=== PATIENT | female | born 1950 | race Caucasian/White ===

== ENCOUNTER 2019-04-14 11:21 | Inpatient (IN) | payer OTHER ==
[2019-04-14 11:30] VITALS: BMI 30.1
--- NOTE | 2019-04-14 11:53 | PDOC ---
Attending Attestation - Resident Resident Name: Criss Motley - ED Attending Attestation I have performed the following: I have examined & evaluated the patient, The case was reviewed & discussed with the resident, I agree w/resident's findings & plan, Exceptions are as noted - HPI HPI: 04/14/19 15:31 Reviewed Residents HPI - Physicial Exam PE: 04/14/19 15:31 Vitals: Triage Vital signs reviewed General Appearance: no acute distress, well nourished well developed, Head: Atraumatic, Eyes: Pupils equal reactive round, extraocular movement intact Ears: TM's normal bilaterally; Cardiac: Regular rate and rhythym, no murmurs, no rubs, no gallops, Lungs: Clear to auscultation bilateral, good air movement bilaterally, Abdomen: Soft, non distended, normal bowel sounds, non tender to palpation Extremities: Full range of motion to all extremities, no cyanosis, clubbing, or edema Skin: Warm and dry, no rashes or lesions, no rash, no petechiae Neuro: AOX3; Cranial Nerves 2-12 grossly intact, Strength intact to all extremities, Sensation intact to all extremities,gait normal Psych: normal mood, normal affect - Medical Decision Making 04/14/19 15:31 68 years old with past medical history significant for hypertension intermittent palpitations has been on a Holter monitor presents to the ED with episode of palpitations with right arm numbness which is new. Patient discussed with her primary care doctor and was sent to the emergency department for admission for stroke workup with consultation by Dr. Delgado off neurology Sinus rhythm on EKG. Labs within normal limits We'll admit the hospital for further management.
--- NOTE | 2019-04-14 12:08 | PDOC ---
History of Present Illness - General Chief Complaint: Palpitations Stated Complaint: SENT BY PCP Time Seen by Provider: 04/14/19 11:44 - History of Present Illness Initial Comments: Madina Carter is a 68yo woman with a PMH of HTN who presents with intermittent palpitations at home. She reports that she has had palpitations in the past, and she was given a holter monitor for the past 2 weeks for monitoring. She went to see Dr Matta today to turn in the holter and reported having palpitations overnight along with right arm numbness, which is new. She was sent to the ED for admission for TIA/CVA workup and neurology consultation. Ms Carter states that overnight she had 2 episodes of palpitations, which she describes as feeling her heart beating very strongly, lasting about 15 minutes each overnight. She additionally had the onset of right arm numbness The palpitations resolved, but she continues to have arm numbness. She states that she still has sensation in the RUE but it feels different than normal. She has no other complaints currently. She has never had anything similar happen in the past. Past History - Past Medical History Allergies/Adverse Reactions: Allergies Allergy/AdvReac Type Severity Reaction Status Date / Time No Known Allergies Allergy Verified 04/14/19 11:30 Home Medications: Ambulatory Orders Amlodipine Besylate/Benazepril [Lotrel 10-20 mg Capsule] 1 cap PO DAILY Calcium Phosphate Trib/Vit D3 [Caltrate Gummy Bites] 1 each PO DAILY 04/14/19 Cyclosporine [Restasis] 1 each OP DAILY 04/14/19 Folic Acid - 1 mg PO DAILY 04/14/19 Hydroxychloroquine Sulfate 200 mg PO DAILY 04/14/19 Meloxicam 7.5 mg PO DAILY 04/14/19 Methotrexate Sodium [Methotrexate] 2.5 mg PO BID 04/14/19 Omega3/Dha/Epa/Fish Oil/Vit D3 [Fish Oil-Vit D3 Softgel] 1 each PO DAILY Rosuvastatin [Crestor -] 5 mg PO DAILY 04/14/19 COPD: No HTN: Yes Other medical history: ARTHRITIS - Suicide/Smoking/Psychosocial Hx Smoking History: Never smoked Hx Alcohol Use: No Drug/Substance Use Hx: No Review of Systems - Review of Systems Comments:: General: No fevers, no chills, no weight or appetite change, no malaise HEENT: No changes in vision, no changes in hearing, no congestion, no sore throat CV: No chest pain, no palpitations, no LE edema Pulm: No SOB, no cough, no wheezing GI: No nausea or vomiting, no change in bowel habits, no melena : No frequency, no urgency, no dysuria Musc: No back pain, no joint swelling, no recent injury Skin: No rash, no lesions, no erythema Endo: No excessive thirst, no heat/cold intolerance Heme: No unusual bruising or bleeding, no swollen glands Neuro: No syncope, See HPI, no focal weakness Vasc: No claudication Psych: No recent change in mood, no SI or HI *Physical Exam - Vital Signs Last Vital Signs Temp Pulse Resp BP Pulse Ox 98.1 F 89 16 150/62 99 04/14/19 11:26 04/14/19 11:26 04/14/19 11:04/14/19 11:04/14/19 11:26 - Physical Exam Comments: General: Comfortable, no acute distress HEENT: PERRL, EOMI, MMM, voice normal, normal neck ROM Cards: RRR, no murmur appreciated Pulm: Comfortable on room air, clear to auscultation bilaterally Abd: Soft, nontender, nondistended Ext: Atraumatic. No LE edema. ROM intact. WWP Skin: Normal color, no rashes or lesions Neuro: A&Ox3, CN grossly intact, normal speech, motor grossly intact and symmetric. Light touch feels "different" in RUE compared to left. Psych: Mood appropriate to situation ED Treatment Course - LABORATORY CBC & Chemistry Diagram: 04/14/19 12:06 04/14/19 12:06 - RADIOLOGY Radiology Studies Ordered: Category Date Time Status HEAD CT WITHOUT CONTRAST [CT] Stat CT Scan 04/14/19 12:06 Ordered Medical Decision Making - Medical Decision Making 04/14/19 12:07 Madina Carter is a 68yo woman with a PMH of HTN who was sent to the ED by Dr Matta for intermittent palpitations at home and now RUE numbness that started overnight. She reports some sensation in the RUE but says it feels different than the left. - Possible TIA, may have underlying arrhythmia. Holter monitor for past 2 weeks but unable to access from the ED - CBC, CMP, EKG, CXR - CT head to evaluate for bleed as cause of RUE numbness - Admit when results available. 04/14/19 13:23 - Labs unremarkable - EKG w/ NSR, normal intervals, no ST changes - CT head completed, no acute pathology appreciated on ED read, radiology report pending - Page sent for admission 04/14/19 13:53 - Updated pt and family regarding plan 04/14/19 14:19 - Spoke to MARKO Ponce, will admit to Dr Matta's service on telemetry Discussed with Dr Tang Motley PGY2 *DC/Admit/Observation/Transfer Diagnosis at time of Disposition: Palpitations, RUE numbness - Discharge Dispostion Decision to Admit order: Yes - Referrals - Patient Instructions - Post Discharge Activity
[2019-04-14 12:20] LABS: BASO % 0.3 % (0-2.0); EOS % 0.4 % (0-4.5); HEMATOCRIT 41.5 % (32.4-45.2); HEMOGLOBIN 13.9 GM/dL (10.7-15.3); LYMPH % 31.1 % (8-40); MCH 31.3 pg (25.7-33.7); MCHC 33.6 g/dl (32.0-36.0); MEAN CELL VOLUME 93.2 fl (80-96); MEAN PLT VOLUME 9.4 fl (7.5-11.1); NEUT % 61.2 % (42.8-82.8); PLATELET COUNT 160 K/MM3 (134-434); RBC 4.45 M/mm3 (3.60-5.2); RDW 13.9 % (11.6-15.6); WHITE BLOOD COUNT 6.6 K/mm3 (4.0-10.0)
[2019-04-14 12:46] LABS: ALBUMIN 4.1 g/dl (3.4-5.0); ALK PHOS 92 U/L (45-117); ANION GAP 8 MMOL/L (8-16); BILIRUBIN,TOTAL 0.5 mg/dL (0.2-1); BLOOD UREA NITROGEN 23.5 mg/dL (7-18); CALCIUM 9.3 mg/dL (8.5-10.1); CHLORIDE 109 mmol/L (98-107); CO2 23 mmol/L (21-32); CREATININE 1.1 mg/dL (0.55-1.3); GLUCOSE,RANDOM 108 mg/dL (74-106); POTASSIUM 4.1 mmol/L (3.5-5.1); SGOT/AST 16 U/L (15-37); SGPT/ALT 27 U/L (13-61); SODIUM 141 mmol/L (136-145); TOT PROT 7.4 g/dl (6.4-8.2)
--- NOTE | 2019-04-14 17:40 | HP ---
Admitting History and Physical - Primary Care Physician PCP: Ankit Mtata - Admission Chief Complaint: Palpitations, RUE numbness History of Present Illness: Patient is a 68 y/o female with past medical history of HTN. Patient presented to ER from PCP office for palpitations. Patient states she began experiencing palpitations a few weeks ago not accompanied with SOB, chest pain, or dizziness. She initially was seen by PCP when palpitations started and Holter monitor was for 14 days. She was still experiencing palpitations while monitor was placed. She would also notice that with her palpitations would also experience intermiitent episodes of right upper extremity numbness. She went to see her PCP today to have Holter monitor removed and sent her to ER for further evaluation of her palpitations and RUE numbness. History Source: Patient Limitations to Obtaining History: No Limitations - Smoking History Smoking history: Never smoked - Alcohol/Substance Use Hx Alcohol Use: No Home Medications - Allergies Allergies/Adverse Reactions: Allergies Allergy/AdvReac Type Severity Reaction Status Date / Time No Known Allergies Allergy Verified 04/14/19 11:30 - Home Medications Home Medications: Ambulatory Orders Amlodipine Besylate/Benazepril [Lotrel 10-20 mg Capsule] 1 cap PO DAILY Calcium Phosphate Trib/Vit D3 [Caltrate Gummy Bites] 1 each PO DAILY 04/14/19 Cyclosporine [Restasis] 1 each OP DAILY 04/14/19 Folic Acid - 1 mg PO DAILY 04/14/19 Hydroxychloroquine Sulfate 200 mg PO DAILY 04/14/19 Meloxicam 7.5 mg PO DAILY 04/14/19 Methotrexate Sodium [Methotrexate] 2.5 mg PO BID 04/14/19 Omega3/Dha/Epa/Fish Oil/Vit D3 [Fish Oil-Vit D3 Softgel] 1 each PO DAILY Rosuvastatin [Crestor -] 5 mg PO DAILY 04/14/19 Review of Systems - Review of Systems Constitutional: reports: No Symptoms Eyes: reports: No Symptoms HENT: reports: Difficult Swallowing Neck: reports: No Symptoms Cardiovascular: reports: Palpitations Respiratory: reports: No Symptoms Gastrointestinal: reports: Indigestion Genitourinary: reports: No Symptoms Breasts: reports: No Symptoms Reported Musculoskeletal: reports: No Symptoms Integumentary: reports: No Symptoms Neurological: reports: Numbness (RUE) Endocrine: reports: No Symptoms Hematology/Lymphatic: reports: No Symptoms Psychiatric: reports: No Symptoms Physical Examination Vital Signs: Vital Signs Temperature 98.3 F 04/14/19 16:04 Pulse Rate 78 04/14/19 16:04 Respiratory Rate 16 04/14/19 16:04 Blood Pressure 139/70 04/14/19 16:04 O2 Sat by Pulse Oximetry (%) 100 04/14/19 16:04 Constitutional: Yes: No Distress, Calm Eyes: Yes: Conjunctiva Clear HENT: Yes: Atraumatic Neck: Yes: Supple Cardiovascular: Yes: Regular Rate and Rhythm Respiratory: Yes: Regular, CTA Bilaterally Gastrointestinal: Yes: Normal Bowel Sounds, Soft Musculoskeletal: Yes: WNL Extremities: Yes: WNL Edema: No Neurological: Yes: Alert, Oriented, Weakness (RUE) Psychiatric: Yes: Alert, Oriented Labs: CBC, BMP 04/14/19 12:06 04/14/19 12:06 Imaging - Results Cat Scan: Report Reviewed MRI: Report Reviewed Problem List - Problems (1) Palpitations Assessment/Plan: -Cardiology consult -tele monitoring Code(s): R00.2 - PALPITATIONS (2) RUE numbness Assessment/Plan: -Neurology consult -Head CT scan shows no acute intracranial hemorrhage, edema, midline shift, mass effect, or skull fracture, acute territorial infarction -Brain MRI shows no evidence of ICH, acute infarction, mass lesion -neuro checks q4h Code(s): R20.0 - ANESTHESIA OF SKIN (3) HTN (hypertension) Assessment/Plan: -Lisinopril, Norvasc -low Na diet Code(s): I10 - ESSENTIAL (PRIMARY) HYPERTENSION (4) HLD (hyperlipidemia) Assessment/Plan: -Crestor -lipid panel Code(s): E78.5 - HYPERLIPIDEMIA, UNSPECIFIED Assessment/Plan see problem list dvt ppx
[2019-04-14] MEDS ORDERED: ROSUVASTATIN CA 5 MG TABLET (FP) PO SCH (22:00)
[2019-04-14] MEDS: HEPARIN NA (PORCINE) 5,000 UNITS/ML 1ML VIAL SQ SCH (22:09)
[2019-04-15 06:24] LABS: BASO % 0.6 % (0-2.0); EOS % 1.9 % (0-4.5); HEMATOCRIT 38.6 % (32.4-45.2); LYMPH % 48.1 % (8-40); MCH 31.5 pg (25.7-33.7); MCHC 33.8 g/dl (32.0-36.0); MEAN CELL VOLUME 93.2 fl (80-96); MEAN PLT VOLUME 9.4 fl (7.5-11.1); MONO % 9.4 % (3.8-10.2); PLATELET COUNT 144 K/MM3 (134-434); RBC 4.14 M/mm3 (3.60-5.2); RDW 14.2 % (11.6-15.6); WHITE BLOOD COUNT 5.2 K/mm3 (4.0-10.0)
[2019-04-15 07:40] LABS: ALBUMIN 3.7 g/dl (3.4-5.0); ALK PHOS 80 U/L (45-117); ANION GAP 7 MMOL/L (8-16); BILIRUBIN,TOTAL 0.6 mg/dL (0.2-1); BLOOD UREA NITROGEN 18.5 mg/dL (7-18); CHLORIDE 110 mmol/L (98-107); CHOLESTEROL 120 mg/dL (50-200); CO2 25 mmol/L (21-32); GLUCOSE,RANDOM 94 mg/dL (74-106); HDL CHOLESTEROL 52 mg/dL (40-60); MAGNESIUM 2.1 mg/dL (1.8-2.4); PHOSPHOROUS 3.2 mg/dL (2.5-4.9); POTASSIUM 3.9 mmol/L (3.5-5.1); SGOT/AST 16 U/L (15-37); SGPT/ALT 25 U/L (13-61); SODIUM 142 mmol/L (136-145); TOT PROT 6.6 g/dl (6.4-8.2); TRIGLYCERIDES 76 mg/dL (0-150)
--- NOTE | 2019-04-15 08:54 | PN ---
Progress Note, Physician - Current Medication List Current Medications: Active Medications Amlodipine Besylate (Norvasc -) 10 mg PO DAILY [facility] Heparin Sodium (Porcine) (Heparin -) 5,000 unit SQ BID [facility] Last Admin: 04/14/19 22:09 Dose: 5,000 unit Hydroxychloroquine Sulfate (Plaquenil -) 200 mg PO DAILY [facility] Lisinopril (Prinivil) 20 mg PO DAILY [facility] Rosuvastatin Calcium (Crestor -) 5 mg PO HS [facility] Last Admin: 04/14/19 22:09 Dose: 5 mg - Objective Vital Signs: Vital Signs Temperature 98.3 F 04/15/19 06:00 Pulse Rate 73 04/15/19 06:00 Respiratory Rate 17 04/15/19 06:00 Blood Pressure 123/56 L 04/15/19 06:00 O2 Sat by Pulse Oximetry (%) 99 04/14/19 21:00 Cardiovascular: Yes: Regular Rate and Rhythm Respiratory: Yes: Regular, CTA Bilaterally Gastrointestinal: Yes: Normal Bowel Sounds, Soft Labs: CBC, BMP 04/15/19 06:10 04/15/19 06:05 Assessment/Plan - Problems (1) Palpitations Assessment/Plan: -Cardiology consult -tele monitoring no arrythmia noted -obtain results of zio-patch Code(s): R00.2 - PALPITATIONS (2) RUE numbness Assessment/Plan: -Neurology consult -Head CT scan shows no acute intracranial hemorrhage, edema, midline shift, mass effect, or skull fracture, acute territorial infarction -Brain MRI shows no evidence of ICH, acute infarction, mass lesion -neuro checks q4h Code(s): R20.0 - ANESTHESIA OF SKIN (3) HTN (hypertension) Assessment/Plan: -Lisinopril, Norvasc -low Na diet Code(s): I10 - ESSENTIAL (PRIMARY) HYPERTENSION (4) HLD (hyperlipidemia) Assessment/Plan: -Crestor -lipid panel Code(s): E78.5 - HYPERLIPIDEMIA, UNSPECIFIED
[2019-04-15] MEDS ORDERED: PT OWN MED DRAWER 7, Y5N ONE (09:55)
[2019-04-15] MEDS ORDERED: LISINOPRIL 20 MG TABLET (FP) PO SCH (10:00)
[2019-04-15] MEDS ORDERED: HYDROXYCHLOROQUINE SO4 200 MG TABLET (FP) PO SCH (10:00)
[2019-04-15] MEDS ORDERED: PATIENT'S OWN MEDICATION (NON-FORMULARY) (Amlodipine Besylate/Benazepril [Lotrel 10-20 Mg PO SCH (10:00)
[2019-04-15] MEDS ORDERED: amLODIPine BESYLATE 10 MG TABLET (FP) PO SCH (10:00)
[2019-04-15] MEDS: HEPARIN NA (PORCINE) 5,000 UNITS/ML 1ML VIAL SQ SCH (10:18)
--- NOTE | 2019-04-15 10:55 | CONSULT ---
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 at bedside. PMHX: HTN, HLD, RA, "neck arthritis." On: amlodipine, folic acid, hydroxychloroquine, meloxicam 7.5 mg qd, methotrexate, omega 3, rosuvastatin. Admitted after 2 weeks of new onset, mostly nocturnal, intermittent "palpitations" with R arm "numbness," "tingling" in the fingertips. No SOB. There were two "severe" episodes that occurred at approximately 8 pm while resting and "milder" episodes in evening hours with transient paresthesia in both hands. Was started on Holter monitor by PCP, however palpitations and parasthesia persisted and was told to go to ER. Today without palpitations or paresthesia and none noted last night. Review of systems sig for mild headaches at vertex most of her life, approximately once a week and relieved with Advil. Also with intermittent neck "pains" requiring her to lie down and rest. She does admit she has been somewhat "stressed" and "anxious" dealing with the grandchildren's schedules. Also describes being more agitated lately. Head CT (reviewed): Normal Study. MRI of brain C- (reviewed): Limited study but no obvious acute pathology. WBC= 5.6 TSH= 0.96 RADHA: BP 150/62-> 123/56. P 70s. Cor reg. No bruit. Neck supple. Neg SLR. Neg Tinel's. NEURO: Awake, alert, responsive. [facility]. April 15, 2019. "A bad day." TRUMP. Poor reversals. 2/3 recall @ 5 min. + glabella CNII-CNXII: EOM's full with full bass. No facial. Gag ok. Motor: No drift or tremor. Strength normal. Reflexes normal. Toes downgoing. Coordination: No FTN dystaxia. Sensation: Normal to vibration and pinprick. Gait: Stiff-legged but normal. Can walk on heels, toes without difficulty. Impression: Normal neurological examination Migraine Headaches Cervical spondylosis Possible anxiety/panic attacks with underlying depression. R/O Carpal tunnel syndromes R/O arrhythmia Suggest: Check B12, ESR, CRP Await cardiology evaluation Check orthostatic BP's Neuro f/u as out patient for EMG/NCS and management of chronic headaches and possible RLS. Thank you very much, Suresh Carreon MD
--- NOTE | 2019-04-15 11:09 | EKG ---
Test Reason : Blood Pressure : / mmHG Vent. Rate : 078 BPM Atrial Rate : 078 BPM P-R Int : 154 ms QRS Dur : 078 ms QT Int : 394 ms P-R-T Axes : 055 024 036 degrees QTc Int : 449 ms POOR DATA QUALITY, INTERPRETATION MAY BE ADVERSELY AFFECTED NORMAL SINUS RHYTHM NORMAL ECG NO PREVIOUS ECGS AVAILABLE Confirmed by DIMPLE ELIAS MD ([id number]) on 04/15/2019 11:09:29 AM Referred By: Confirmed By:DIMPLE ELIAS MD
--- NOTE | 2019-04-15 11:49 | CON.CARD ---
Consult Consult Specialty:: Cardiology Referred by:: Sigrid Reason for Consultation:: palpitations - History of Present Illness Chief Complaint: palpitations History of Present Illness: She is a 68 year old woman history of HTN, who has been having 2 weeks of episodic nonexertional palpitations, described as racing, without dizziness, chest pain or syncope, at least one while wearing a holter from Dr Matta's office. Believes she had echo there as well. - Past Medical History ...: No - Alcohol/Substance Use Hx Alcohol Use: No - Smoking History Smoking history: Never smoked Have you smoked in the past 12 months: No Home Medications - Allergies Allergies/Adverse Reactions: Allergies Allergy/AdvReac Type Severity Reaction Status Date / Time No Known Allergies Allergy Verified 04/14/19 11:30 - Home Medications Home Medications: Ambulatory Orders Amlodipine Besylate/Benazepril [Lotrel 10-20 mg Capsule] 1 cap PO DAILY Calcium Phosphate Trib/Vit D3 [Caltrate Gummy Bites] 1 each PO DAILY 04/14/19 Cyclosporine [Restasis] 1 each OP DAILY 04/14/19 Folic Acid - 1 mg PO DAILY 04/14/19 Hydroxychloroquine Sulfate 200 mg PO DAILY 04/14/19 Meloxicam 7.5 mg PO DAILY 04/14/19 Methotrexate Sodium [Methotrexate] 2.5 mg PO BID 04/14/19 Omega3/Dha/Epa/Fish Oil/Vit D3 [Fish Oil-Vit D3 Softgel] 1 each PO DAILY Rosuvastatin [Crestor -] 5 mg PO DAILY 04/14/19 Review of Systems - Review of Systems Constitutional: reports: No Symptoms Eyes: reports: No Symptoms HENT: reports: No Symptoms Neck: reports: No Symptoms Cardiovascular: reports: Palpitations Respiratory: reports: No Symptoms Gastrointestinal: reports: No Symptoms Genitourinary: reports: No Symptoms Integumentary: reports: No Symptoms Neurological: reports: Parasthesia Endocrine: reports: No Symptoms Vital Signs: Vital Signs Temperature 98.3 F 04/15/19 06:00 Pulse Rate 73 04/15/19 06:00 Respiratory Rate 17 04/15/19 06:00 Blood Pressure 123/56 L 04/15/19 06:00 O2 Sat by Pulse Oximetry (%) 99 04/14/19 21:00 Constitutional: Yes: No Distress, Calm Eyes: Yes: Conjunctiva Clear, EOM Intact HENT: Yes: Atraumatic, Normocephalic Neck: Yes: Supple, Trachea Midline Respiratory: Yes: Regular, CTA Bilaterally Gastrointestinal: Yes: Normal Bowel Sounds, Soft Renal/: Yes: WNL Cardiovascular: Yes: Regular Rate and Rhythm JVD: No Carotid Bruit: No PMI: Non-Displaced Heart Sounds: Yes: S1, S2 Musculoskeletal: Yes: WNL Extremities: Yes: WNL Edema: No Peripheral Pulses WNL: Yes - Other Data Labs, Other Data: CBC, BMP 04/15/19 06:10 04/15/19 06:05 Troponin, BNP 04/14/19 04/15/19 12:06 06:05 Troponin I < 0.02 < 0.02 Troponin, BNP 04/14/19 04/15/19 12:06 06:05 Troponin I < 0.02 < 0.02 Imaging - Results Chest X-ray: Report Reviewed EKG: Report Reviewed (nsr [id number] [id number]) Assessment/Plan She is a 68 year old woman history of HTN, who has been having 2 weeks of episodic nonexertional palpitations, described as racing, without dizziness, chest pain or syncope, at least one while wearing a holter from Dr Matta's office. Believes she had echo there as well. Plan: -scan outpatient holter, she had symptoms while wearing it. She does not have to remain in the hospital for this. -echo -neuro saldivar per Dr Carreon -observe on tele for 24 hours. can be worked up as outpatient. -imaging does not reveal NEEDLE LOOM SETTER pathology, defer ASA or AC for now until holter results.
--- NOTE | 2019-04-15 12:56 | DS ---
Physical Examination Vital Signs: Vital Signs Temperature 98.3 F 04/15/19 06:00 Pulse Rate 73 04/15/19 06:00 Respiratory Rate 17 04/15/19 06:00 Blood Pressure 123/56 L 04/15/19 06:00 O2 Sat by Pulse Oximetry (%) 99 04/14/19 21:00 Labs: CBC, BMP 04/15/19 06:10 04/15/19 06:05 Discharge Summary Reason For Visit: PALPITATIONS,R UPPER EXTREMITY NUMBNESS Current Active Problems HLD (hyperlipidemia) (Acute) HTN (hypertension) (Acute) Palpitations (Acute) RUE numbness (Acute) Condition: Stable - Instructions Referrals: Ankit Matta MD [Primary Care Provider] - Disposition: HOME - Home Medications Comprehensive Discharge Medication List: Ambulatory Orders Amlodipine Besylate/Benazepril [Lotrel 10-20 mg Capsule] 1 cap PO DAILY Calcium Phosphate Trib/Vit D3 [Caltrate Gummy Bites] 1 each PO DAILY 04/14/19 Cyclosporine [Restasis] 1 each OP DAILY 04/14/19 Folic Acid - 1 mg PO DAILY 04/14/19 Hydroxychloroquine Sulfate 200 mg PO DAILY 04/14/19 Meloxicam 7.5 mg PO DAILY 04/14/19 Methotrexate Sodium [Methotrexate] 2.5 mg PO BID 04/14/19 Omega3/Dha/Epa/Fish Oil/Vit D3 [Fish Oil-Vit D3 Softgel] 1 each PO DAILY Rosuvastatin [Crestor -] 5 mg PO DAILY 04/14/19
--- NOTE | 2019-04-15 14:20 | ECHO ---
Name: GRIFFIN JOE Exam:Adult Echocardiogram Study Date: 04/15/2019 12:56 PM Age: 68 yrs Reason For Study: Palpitations Height: 63 in Weight: 168 lb BSA: 1.8 m2 MMode/2D Measurements & Calculations IVSd: 1.0 cm Ao root diam: 2.6 cm LVIDd: 4.3 cm LA dimension: 3.1 cm LVIDs: 2.9 cm LVPWd: 0.79 cm EDV(Teich): 84.1 ml LVOT diam: 2.0 cm ESV(Teich): 33.4 ml Doppler Measurements & Calculations MV E max cameron: 53.7 cm/sec Ao V2 max: 170.3 cm/sec MV A max cameron: 75.3 cm/sec Ao max P.6 mmHg MV E/A: 0.71 Ao V2 mean: 109.9 cm/sec MV dec time: 0.19 sec Ao mean P.5 mmHg Ao V2 VTI: 34.4 cm MIRA(I,D): 1.9 cm2 MIRA(V,D): 2.0 cm2 LV V1 max P.9 mmHg MR max cameron: 258.2 cm/sec LV V1 mean P.5 mmHg MR max P.7 mmHg LV V1 max: 110.4 cm/sec LV V1 mean: 76.4 cm/sec LV V1 VTI: 22.1 cm SV(LVOT): 67.0 ml TR max cameron: 173.6 cm/sec TR max P.3 mmHg Med Peak E' Cameron: 6.8 cm/sec Med E/e': 7.9 Lat Peak E' Cameron: 8.1 cm/sec Lat E/e': 6.6 Procedure A two-dimensional transthoracic echocardiogram with color flow and Doppler was performed. Left Ventricle The left ventricular size, thickness and function are normal. The left ventricular ejection fraction is normal. E/A reversal consistent with but not diagnostic of poor LV compliance. The left ventricular w all motion is normal. Right Ventricle The right ventricle is normal in size and function. Atria Normal left and right atrial size and function. Mitral Valve The mitral valve is normal in structure and function. There is no mitral valve stenosis. There is tra ce to mild mitral regurgitation. Tricuspid Valve The tricuspid valve is normal in structure and function. There is no tricuspid stenosis. There is Tra ce to mild tricuspid regurgitation. Right ventricular systolic pressure is normal. Aortic Valve The aortic valve is normal in structure and function. No hemodynamically significant valvular aortic stenosis. No aortic regurgitation is present. Pulmonic Valve The pulmonic valve is not well visualized. Great Vessels The aortic root is normal size. Pericardium/Pleura There is no pericardial effusion. Interpretation Summary The left ventricular size, thickness and function are normal The left ventricular ejection fraction is normal. The left ventricular wall motion is normal. There is trace to mild mitral regurgitation. Right ventricular systolic pressure is normal. There is Trace to mild tricuspid regurgitation. E/A reversal consistent with but not diagnostic of poor LV compliance MD Wilman Jernigan 04/15/2019 02:19 PM
[2019-04-15 15:19] VITALS: BP 109/71; PULSE 97
[2019-04-15 15:28] VITALS: TEMP 98.6
== END 2019-04-15 15:29 | disposition home or self-care (01) | DRG 93 ==
LOC: JER 11:21 → JERBED 14:09 → J4W 20:32
PROVIDERS: ADMIT Family Medicine; ATTEND Family Medicine
DX: R20.0 Anesthesia of skin (principal); R00.2 Palpitations; I10 Essential (primary) hypertension; E78.5 Hyperlipidemia, unspecified; G43.909 Migraine, unspecified, not intractable, without status migrainosus; M47.892 Other spondylosis, cervical region
CPT/HCPCS: 36415; 70450-TC; 70552-TC; 71045-TC-FY; 80053; 80061; 82962; 83721; 83735; 84100; 84436; 84443; 84484; 85025; 93005; 93010; 93306-TC; 99285-25; J1644

== ENCOUNTER 2023-12-17 16:06 | Emergency (ER) | payer OTHER ==
[2023-12-17 16:11] VITALS: BP 153/64; PULSE 84; RESP 16; TEMP 98.2; BMI 31.6
[2023-12-17 17:00] LABS: BASO % 0.5 % (0-2.0); EOS % 2.8 % (0-4.5); HEMATOCRIT 47.4 % (32.4-45.2); HEMOGLOBIN 15.8 GM/dL (10.7-15.3); LYMPH % 41.1 % (8-40); MCH 30.9 pg (25.7-33.7); MCHC 33.4 g/dl (32.0-36.0); MEAN CELL VOLUME 92.3 fl (80-96); MONO % 8.9 % (3.8-10.2); NEUT % 46.7 % (42.8-82.8); PLATELET COUNT 189 10^3/uL (134-434); RBC 5.13 M/mm3 (3.60-5.2); RDW 13.6 % (11.6-15.6); WHITE BLOOD COUNT 8.1 K/mm3 (4.0-10.0)
[2023-12-17 17:08] LABS: INR 0.96 (0.83-1.09); PROTHROMBIN TIME (PATIENT) 10.9 SEC (9.7-13.0)
[2023-12-17 17:11] LABS: ACTIVATED PTT 34.6 SECONDS (25.2-36.5)
[2023-12-17 17:30] LABS: POTASSIUM 4.1 mmol/L (3.5-5.1)
[2023-12-17 17:32] LABS: CALCIUM 9.8 mg/dL (8.5-10.1)
[2023-12-17 17:33] LABS: ALBUMIN 4.1 g/dl (3.4-5.0); BLOOD UREA NITROGEN 15.3 mg/dL (7-18); MAGNESIUM 2.1 mg/dL (1.8-2.4)
[2023-12-17 17:38] LABS: TOT PROT 7.6 g/dl (6.4-8.2)
[2023-12-17 17:42] LABS: BILIRUBIN,TOTAL 0.5 mg/dL (0.2-1)
[2023-12-17] MEDS ORDERED: MECLIZINE HCL 25 MG TABLET (FP) ONE (17:42)
[2023-12-17] MEDS: MECLIZINE HCL 25 MG TABLET (FP) PO ONE (17:46)
[2023-12-17] MEDS: SODIUM CHLORIDE 0.9% 500 ML INFUS.BAG IV ONE (17:46)
[2023-12-17 18:57] LABS: URINE APPEARANCE CLEAR; URINE BILIRUBIN NEGATIVE (NEGATIVE); URINE COLOR YELLOW; URINE GLUCOSE (UA) NEGATIVE (NEGATIVE); URINE KETONE NEGATIVE (NEGATIVE); URINE LEUK ESTERASE NEGATIVE (NEGATIVE); URINE NITRITE NEGATIVE (NEGATIVE); URINE PROTEIN NEGATIVE (NEGATIVE); URINE UROBILINOGEN 0.2 mg/dL (0.2-1.0)
== END 2023-12-17 19:56 | disposition home or self-care (01) ==
LOC: JER 16:06
DX: R42 Dizziness and giddiness (principal); R26.89 Other abnormalities of gait and mobility; R68.83 Chills (without fever); Z20.822 Contact with and (suspected) exposure to COVID-19
CPT/HCPCS: 0241U-QW; 36415; 70450-TC; 70551-TC; 71045-TC-FY; 80053; 81003; 83735; 84484; 85025; 85610; 85730; 87086; 93005; 93010; 99285-25